=== PATIENT | female | born 1950 | race Caucasian/White ===

== ENCOUNTER 2020-01-13 17:14 | Emergency (ER) | payer MEDICARE, SELFPAY ==
[2020-01-13 17:47] VITALS: BP 132/72; PULSE 69; RESP 18; TEMP 37.7; O2SAT 100
--- NOTE | 2020-01-13 18:30 | PC.NURSE ---
patient here with dog bite to her left forearm. see triage notes. no active bleeding. (+)PMS. alert. oriented. assessments documented. sitting in chair in exam room. waiting for exam by provider. has call light in reach.
--- NOTE | 2020-01-13 18:45 | PC.NURSE ---
patient's wound cleaned by provider. steri-strips and dressing to left FA per provider. patient has extra supplies for dressing changes at home. alert. oriented. denies needs at this time.
--- NOTE | 2020-01-13 19:15 | ED.ANIMALBIT ---
HPI - Animal Bite General Chief Complaint: Animal Bite Stated Complaint: Dog bite Time Seen by Provider: 01/13/20 17:54 Source: patient Mode of arrival: ambulatory Limitations: no limitations History of Present Illness HPI narrative: Patient is a 69-year-old female who presents with dog bites to the left upper extremity that occurred just prior to arrival patient was outside when her neighbors dog was loose and ran towards her bit her on the left upper extremity where she has wounds to the forearm and the hand patient notes her tetanus is up-to-date patient notes mild aching pain worse with activity and movement patient denies other injuries or complaints presents in no distress does not appear uncomfortable has not taken anything for her symptoms Related Data Allergies Allergy/AdvReac Type Severity Reaction Status Date / Time No Known Allergies Allergy Verified 01/13/20 17:49 Review of Systems Review of Systems: All systems reviewed & are unremarkable except as noted in HPI and below PMFSH Social History Social History Smoking status: Never smoker Exam Narrative: Exam Narrative: GENERAL: Well-appearing, well-nourished, and in no acute distress. HEAD: Normocephalic, atraumatic. EYES: PERRLA and EOMI. ENT: Nares clear, no rhinorrhea or epistaxis. Mucous membranes moist. EXTREMITIES: Normal range of motion. No edema. SKIN: Warm, dry, no rash. Patient with 2 cm laceration left mid forearm dorsal surface with 2 puncture wounds adjacent and a smaller 1 cm laceration on the volar surface of the forearm. Flap laceration over the MCP joint of the second digit of the left hand. Small half centimeter laceration of the dorsal surface of the distal left thumb. Puncture wound of the proximal left pinky finger NEURO: No focal deficits. Alert and oriented x3. Neurovascularly intact. Capillary refill less than 2 seconds PSYCH: Normal mood and affect. Course Course Emergency Course: Patient in the room aware of case findings treatment plan diagnosis will be discharged home. Patient agreeing to follow with primary care and has been given reasons to return Vital Signs Vital signs: Vital Signs Temperature 99.9 F H 01/13/20 17:47 Pulse Rate 69 01/13/20 17:47 Respiratory Rate 18 01/13/20 17:47 Blood Pressure 132/72 01/13/20 17:47 Pulse Oximetry 100 01/13/20 17:47 Temperature 99.9 F H 01/13/20 17:47 Pulse Rate 69 01/13/20 17:47 Respiratory Rate 18 01/13/20 17:47 Blood Pressure 132/72 01/13/20 17:47 Pulse Oximetry 100 01/13/20 17:47 Procedures Other Procedure Procedure 1: Other Procedure: Patient's forearm wounds were prepped with soap cleanse with pressure irrigation 2 Steri-Strips were placed on the larger laceration of the forearm and 1 over the MCP joint. Remainder of wounds will be allowed to heal secondarily antibiotic ointment was applied to the wounds MDM - Animal Bite MDM Narrative Medical decision making narrative: Patients injury or pain is consistent with musculoskeletal etiology. No signs of neurological or vascular compromise on exam. Compartments and tisues are soft without signs of compartment syndrome. Pain is felt appropriate for further evaluation on an outpatient basis. Discharge Plan Discharge Clinical Impression: Puncture wound of forearm, Laceration of forearm, Hand laceration, Puncture wound of finger Patient Disposition: Home, Self-Care Condition: Stable Instructions: Antibiotic Form, Animal Bite (ED) Additional Instructions: Follow up with primary care in the next 2-3 days to set up for reevaluation return if symptoms worsen or concerns, any increase in redness swelling pain or fever over 100.5 Follow patient education sheets Clean wound with mild soapy water. Apply antibiotic ointment and clean dressing at least three times daily Keep wounds open to the air use gauze dressings only Tylenol o
[2020-01-13] MEDS: AMOXICILLIN/CLAVULANATE K 875-125 MG TAB 1 TABLET PO (19:37)
--- NOTE | 2020-01-13 19:40 | PC.NURSE ---
PO antibiotic given as ordered. patient aware just waiting for discharge papers.
[2020-01-13 19:42] VITALS: BP 124/70; PULSE 80; O2SAT 98
== END 2020-01-13 19:46 | disposition home or self-care (01) ==
PROVIDERS: Emergency Provider Emergency Medicine
DX: S51.852A Open bite of left forearm, initial encounter (principal); S61.452A Open bite of left hand, initial encounter; S61.251A Open bite of left index finger without damage to nail, initial encounter; W54.0XXA Bitten by dog, initial encounter
CPT/HCPCS: 12001; 99283; A9270